=== PATIENT | male | born 1985 | race Two or more races ===

== ENCOUNTER 2020-10-07 19:48 | Emergency (ER) | payer OTHER ==
[~2020-10-07] VITALS: Ht 182.9 cm; Wt 72.6 kg
[~2020-10-07 19:48] MED LIST: CELEBREX400 MG
== END 2020-10-08 06:22 | disposition home or self-care (01) ==
LOC: ER 19:48
DX: K52.89 Other specified noninfective gastroenteritis and colitis (principal); N50.812 Left testicular pain; Z03.818 Encounter for observation for suspected exposure to other biological agents ruled out

== ENCOUNTER 2023-04-17 16:15 | Emergency (ER) | payer OTHER ==
[~2023-04-17] VITALS: Ht 182.9 cm; Wt 68.0 kg
[2023-04-17] MEDS ORDERED: CARDURA XL4 MG PO (17:05)
[2023-04-17] MEDS ORDERED: DUI500 PO (18:31)
== END 2023-04-17 18:36 | disposition home or self-care (01) ==
LOC: ER 16:15
DX: S81.811A Laceration without foreign body, right lower leg, initial encounter (principal); W45.8XXA Other foreign body or object entering through skin, initial encounter; Y93.9 Activity, unspecified; Y92.019 Unspecified place in single-family (private) house as the place of occurrence of the external cause; Y99.9 Unspecified external cause status

== ENCOUNTER 2023-04-30 19:58 | Emergency (ER) | payer OTHER ==
[~2023-04-30] VITALS: Ht 182.9 cm; Wt 68.0 kg
[~2023-04-30 19:58] MED LIST changes: +CARDURA XL4 MG PO; +DUI500 PO
== END 2023-04-30 20:52 | disposition home or self-care (01) ==
LOC: ER 19:58
DX: Z48.02 Encounter for removal of sutures (principal); Z88.8 Allergy status to other drugs, medicaments and biological substances